=== PATIENT | male | born 1955 | race Caucasian/White ===

== ENCOUNTER 2020-12-27 12:27 | Inpatient (IN) | payer MEDICARE, OTHER ==
[~2020-12-27] VITALS: Ht 170.2 cm; Wt 144.8 kg
[2020-12-27 12:50] LABS: BASOPHILS ABSOLUTE AUTO 0.02 K/mm3 (0.00-0.23); BASOPHILS PERCENT AUTO 0 % (0-2); EOSINOPHILS ABSOLUTE AUTO 0.11 K/mm3 (0.00-0.68); EOSINOPHILS PERCENT AUTO 1 % (0-6); Hematocrit 29.7 % (37.0-53.0); Hemoglobin 8.6 g/dL (13.5-17.5); IMMATURE GRAN ABSOLUTE AUTO 0.06 K/mm3 (0.00-0.10); IMMATURE GRAN PERCENT AUTO 1 % (0-1); LYMPHOCYTES ABSOLUTE AUTO 1.18 K/mm3 (0.84-5.20); LYMPHOCYTES PERCENT AUTO 15 % (21-46); MONOCYTES ABSOLUTE AUTO 0.82 K/mm3 (0.16-1.47); MONOCYTES PERCENT AUTO 10 % (4-13); Mean Corpuscular HGB 28.5 pg (26.0-34.0); Mean Corpuscular Volume 98 fL (80-100); Mean Platelet Volume 12.1 fL (9.1-12.4); NEUTROPHILS ABSOLUTE AUTO 5.94 K/mm3 (1.96-9.15); NEUTROPHILS PERCENT AUTO 73 % (41-73); NRBC ABSOLUTE 0.02 K/mm3 (0.00-0.02); NRBC Auto 0.2 /100 WBC (0.0-0.2); Platelet Count 106 K/mm3 (150-400); RDW Coefficient Variation 15.4 % (11.7-14.2); RDW Standard Deviation 53.6 fL (35.1-46.3); Red Blood Cell Count 3.02 M/mm3 (4.30-5.90); White Blood Cell Count 8.13 K/mm3 (4.00-11.30)
[2020-12-27 13:04] LABS: International Normalized Ratio 1.22; Prothrombin Time Results 12.9 Sec (9.7-11.5)
[2020-12-27 13:10] LABS: Alanine Aminotransfer (ALT/SGP 66 U/L (12-78); Albumin, Blood 2.3 g/dL (3.4-5.0); Albumin/Globulin Ratio 0.7 (0.8-1.8); Alk Phos 97 U/L (50-136); Anion Gap 0 mmol/L (6-16); Aspartate Aminotrans (AST/SGOT 29 U/L (12-37); Bilirubin, Total 0.4 mg/dL (0.1-1.0); Blood Urea Nitrogen 41 mg/dL (8-24); Bun/Creatinine Ratio 36.9 (12.0-20.0); CO2, Blood 35 mmol/L (21-32); Calcium, Blood 8.2 mg/dL (8.5-10.1); Chloride, Blood 113 mmol/L (98-108); Creatinine, Blood 1.11 mg/dL (0.60-1.20); Globulin, Blood 3.5 g/dL (2.2-4.0); Glomerular Filtration Rate >60 (60-); Glucose, Blood 198 mg/dL (70-99); Potassium, Blood 4.3 mmol/L (3.5-5.5); Sodium, Blood 148 mmol/L (136-145); Total Protein, Blood 5.8 g/dL (6.4-8.2); Troponin I 0.018 ng/mL (0.000-0.040)
[2020-12-27] MEDS ORDERED: METOPROLOL TART25 MG PO (14:39)
[2020-12-27] MEDS ORDERED: FUROSEMIDE20 MG PO (14:39)
[2020-12-27] MEDS ORDERED: ATOR40TA PO (14:40)
[2020-12-27] MEDS ORDERED: GLYB2.5 PO (14:40)
[2020-12-27] MEDS ORDERED: LISI5 PO (14:40)
[2020-12-27] MEDS ORDERED: ELIQUIS5 M3 PO (14:40)
[2020-12-27] MEDS ORDERED: METFORMIN HCL1000 M6 PO (14:41)
[2020-12-27] MEDS ORDERED: OXYB5 PO (14:41)
[2020-12-27] MEDS ORDERED: Aspirin EC81 MG PO (15:18)
[2020-12-27] MEDS ORDERED: HUMALOG KW100 UNIT/1 SC (15:19)
[2020-12-27 16:16] LABS: Base Excess Venous 7.8 mmol/L; Bicarbonate Venous 29.9 mmol/L (24.0-30.0); PCO2 Venous 77.8 mmHg (38-42); PO2 Venous 42.6 mmHg (38-42); pH Blood Venous 7.26 (7.34-7.37)
[2020-12-27 19:26] LABS: Hemoglobin 7.2 g/dL (13.5-17.5); Mean Corpuscular HGB 28.1 pg (26.0-34.0); Mean Corpuscular HGB Conc 28.8 g/dL (31.5-36.5); Mean Corpuscular Volume 98 fL (80-100); Mean Platelet Volume 11.9 fL (9.1-12.4); NRBC ABSOLUTE 0.03 K/mm3 (0.00-0.02); NRBC Auto 0.4 /100 WBC (0.0-0.2); Platelet Count 104 K/mm3 (150-400); RDW Coefficient Variation 15.4 % (11.7-14.2); RDW Standard Deviation 53.2 fL (35.1-46.3); Red Blood Cell Count 2.56 M/mm3 (4.30-5.90)
[2020-12-27 20:37] LABS: Percent Saturation 21.1 % (20.0-50.0)
[2020-12-27 22:16] LABS: Hematocrit 25.1 % (37.0-53.0); Hemoglobin 7.3 g/dL (13.5-17.5)
[2020-12-27 22:37] LABS: PCO2 Arterial 56.2 mmHg (35-45); PO2 Arterial 54.1 mmHg (80-100); pH Blood Arterial 7.41 (7.35-7.45)
--- NOTE | 2020-12-27 23:00 | NUR ---
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 PT TRANSFERED TO ICU 15. MOANS TO STERNAL RUB. PT ON BIPAP 20/8 FIO2 21%. PT MED WITH 1/2 AMP D50 THAN WAKES UP AND IS ABLE TO ANSWER QUESTIONS APPROP. LOPRESSOR AND LIPITOR HELD AT 2254 DUE TO DECREASED RESPONSIVNESS. HOSPITALIST MILAGRO TRIPP AT BEDSIDE.
--- NOTE | 2020-12-27 23:29 | NUR ---
PATIENT ARRIVED FROM ED VIA STRETCHER AND WAS SLID TO THE BED @2024. WHEN PATIENT ARRIVED TO THE UNIT HE WAS ALERT AND ORIENTED TO SELF, PLACE, AND FOLLOWING DIRECTIONS. PATIENT HAD GARBLED SPEECH AND WAS HARD TO UNDERSTAND BUT ANSWERED APPROPRIATELY. SLIGHT LEFT SIDE FACIAL DROOP, HX BELLS PALSY IN THE NOTES. PATIENT WAS ABLE TO HELP US WITH TURNING. 2149- WHILE ASSESSING PATIENT FURTHER HIS BP WAS 86/52. PATIENT STILL SOMEWHAT RESPONSIVE AND MOANING. UNABLE TO FOLLOW DIRECTION. 2229- PATIENT UNRESPONSIVE TO PAINFUL STIMULI. BLOOD PRESSURE 75/36. PATIENT HAS HX OF DIABETES, CHECKED BLOOD GLUCOSE WHICH WAS 86. HGB 7.3. CALLED HOSPITALIST TO ADDRESS THESE PROBLEMS AND A RAPID RESPONSE WAS INITIATED. 2239- PATIENT TRANSFERRED TO ICU. CALLED TO GET CONSENT FOR BLOOD TRANSFUSION WITH RON DE PAZ. NOTIFIED OF THE PATIENTS CONDITION AND TRANSFER TO ICU.
[2020-12-27 23:38] LABS: Hematocrit 24.4 % (37.0-53.0); Hemoglobin 7.1 g/dL (13.5-17.5)
--- NOTE | 2020-12-27 23:45 | NUR ---
HYPOTENSION SBP DOWN TO THE 90'S. BLOOD GLUCOSE 123. BOTH REPORTED TO HOSPITALIST MILAGRO TRIPP. RECEIVED ORDER FOR NS 500 ML BOLUS OVER ONE HOUR, STARTED. PT SITTING UP IN BED EATING PUDDING AND TALKING WITH STAFF.
--- NOTE | 2020-12-28 | NUR ---
O2 PT WITH O2 SPO2 DOWN TO 80-85% AT TIMES THAN BACK UP TO 95%. PLACED ON O2 AT 2 LITERS VIA NC.
[2020-12-28 01:54] LABS: U Amphetamine Screen Not Detected; U Barbituate Screen Not Detected; U Benzodiazapine Screen Not Detected; U Buprenorphine Screen Not Detected; U Cannabinoids Screen Not Detected; U Cocaine Screen Not Detected; U Methadone Screen Not Detected; U Methamphetamine Screen Not Detected; U Opiates Screen Not Detected; U Oxycodone Screen Not Detected; U Phencyclidine Screen Not Detected; U Propoxyphene Screen Not Detected
--- NOTE | 2020-12-28 02:08 | NUR ---
CALL TO MD CALL TO DR RAMIREZ REGARDING AFIB WITH RVR AND PT NOT RECEIVING PO DOSE OF LOPRESSOR DUE TO DECREASED LOC AT THE TIME. RECEIVED ORDERS FOR IV LOPRESSOR NOW AND ONE TIME ORDER FOR PO LOPRESSOR NOW. BOTH GIVEN AND PT TOOK PO MEDS IN PUDDING WITHOUT DIFFICULTY. O2 INCREASED TO 4 LITER DUE TO SPO2 88-90%.
[2020-12-28 03:45] LABS: Hemoglobin 6.6 g/dL (13.5-17.5); Mean Corpuscular HGB 28.2 pg (26.0-34.0); Mean Corpuscular HGB Conc 28.7 g/dL (31.5-36.5); Mean Corpuscular Volume 98 fL (80-100); Mean Platelet Volume 12.4 fL (9.1-12.4); NRBC ABSOLUTE 0.02 K/mm3 (0.00-0.02); NRBC Auto 0.2 /100 WBC (0.0-0.2); Platelet Count 101 K/mm3 (150-400); RDW Coefficient Variation 15.5 % (11.7-14.2); RDW Standard Deviation 53.5 fL (35.1-46.3); Red Blood Cell Count 2.34 M/mm3 (4.30-5.90); White Blood Cell Count 8.31 K/mm3 (4.00-11.30)
--- NOTE | 2020-12-28 06:46 | NUR ---
SHIFT SUMMARY PT SLEEPING. UNIT PRBC INFUSING. VSS. IMPROVED MENTATION. PT CALLING FOR ASSIST AND ASSISTING WITH TURNING AND MOVING IN BED. PT PLACED ON O2 DURING THE NIGHT FOR SLEEP APNEA. SPO2 UP TO 95-100%. REPORT TO ON COMING NURSE.
--- NOTE | 2020-12-28 08:07 | NUR ---
DR. RODRIGUEZ UPDATED ON PATIENT STATUS. INFORMED THAT PATIENT SNORING AND HAVING PERIODS OF APNEA WHILE SLEEPING PER SAP PORTAL DEVELOPER RN. PATIENT HAS BEEN ON 4 L NC. ORDERS RECEIVED.
--- NOTE | 2020-12-28 08:10 | NUR ---
INITIAL ASSESSMENT PATIENT LETHARGIC THIS AM BUT WAKES EASILY TO VERBAL STIMULI. PATIENT ALERT AND ORIENTED X 4, AFEBRILE. PATIENT APPEARS SLIGHTLY WITHDRAWN, FLAT AFFECT. L FACIAL DROOP NOTED. SPEECH GARBLED AND DIFFICULT TO UNDERSTAND. 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 PATIENT WEAK BUT ABLE TO MOVE ALL EXTREMITIES. PATIENT SATTING 90% AND GREATER ON 4 L NC. PATIENT RA AT HOME. NIGHT RN REPORTED APNEIC PERIODS AND SNORING WHILE SLEEPING. LUNGS CLEAR IN UPPER LOBES, DIM IN R LOWER LOBE, CRACKLES NOTED IN L LOWER LOBE. PATIENT IN A. FIB, HR 90S TO LOW 100S. SBP LOW 100S TO 120S. PITTING EDEMA OF EXTREMITIES NOTED. ABDOMEN SOFT, MODERATELY DISTENDED, WITH NORMOACTIVE BS NOTED. ATTENDS IN PLACE FOR OCCASIONAL INCONTINENCE. SCHEDULED PO LASIX BEING GIVEN. PATIENT USING URINAL WITH ASSISTANCE. SKIN PALE AND COOL. SCATTERED BRUISES AND SCABS NOTED. ULCER TO COCCYX. SKIN TEAR TO L LEG. BLOOD INFUSING. BED LOW, CALL LIGHT IN REACH. WILL CONTINUE TO MONITOR FREQUENTLY THROUGHOUT SHIFT.
[2020-12-28] MEDS ORDERED: MULVITA PO (10:50)
[2020-12-28] MEDS ORDERED: LOPE2C PO (10:51)
[2020-12-28] MEDS ORDERED: ALUM-MAG HYDROX30 ML PO (10:51)
[2020-12-28] MEDS ORDERED: DULCOLAX400 MG/5 M PO (10:52)
[2020-12-28] MEDS ORDERED: Acetaminophen325 M1 PO (10:53)
[2020-12-28] MEDS ORDERED: Adult Glycerin1 EACH PR (10:53)
[2020-12-28] MEDS ORDERED: Fleet Enema132 ML PR (10:53)
--- NOTE | 2020-12-28 12:10 | NUR ---
PATIENT AFEBRILE. HR 90S TO LOW 100S. SBP 1-TEENS TO 130S. NO COMPLAINTS OF PAIN. NO OTHER ACUTE CHANGES TO NOTE ON AT THIS TIME. WILL CONTINUE TO MONITOR.
--- NOTE | 2020-12-28 12:15 | NUR ---
PATIENT TAKEN TO ABDOMINAL CT BY MUSIC WORKER.
--- NOTE | 2020-12-28 12:23 | NUR ---
DR. CISNEROS INFORMED THAT PATIENT HAS HAD 2 HARD, BLACK BMS TODAY THUS FAR. ORDERS OBTAINED.
--- NOTE | 2020-12-28 13:00 | NUR ---
DR. RODRIGUEZ INFORMED OF H AND H. ORDER RECEIVED.
[2020-12-28 13:37] LABS: Hematocrit 25.1 % (37.0-53.0); Hemoglobin 7.5 g/dL (13.5-17.5)
--- NOTE | 2020-12-28 18:42 | NUR ---
SHIFT SUMMARY PATIENT REMAINED ALERT AND ORIENTED X 4, AFEBRILE. PATIENT LETHARGIC AT TIMES AND DID NAP ON AND OFF THROUGHOUT SHIFT. PATIENT WITHDRAWN AND FLAT. PATIENT HAS REMAINED WITH L FACIAL DROOP AND GARBLED SPEECH. PATIENT HAD NO COMPLAINTS OF PAIN THIS SHIFT. PATIENT REMAINED SATTING 90% AND GREATER ON 1 TO 4 L NC. PATIENT REMAINED IN A. FIB, HR 90S TO LOW 100S. SBP LOW 100S TO 130S. PATIENT REMAINED WITH PITTING EDEMA. PATIENT HAD TWO, HARD, BLACK STOOLS THIS SHIFT. GI SAW PATIENT THIS SHIFT. NO SCOPE PLANNED AT THIS TIME. PATIENT REMAINED INCONTINENT OF URINE. ATTENDS ON, CLEAN AND DRY AT THIS TIME. NO CHANGE TO SKIN. PATIENT REPOSITIONED THROUGHOUT SHIFT. OT AND PT WORKED WITH PATIENT. PATIENT 2 PERSON ASSIST TO BSC OR CHAIR WITH FWW. IVS SALINE LOCKED. PATIENT RECEIVED 1 UNITS PRBCS THIS SHIFT. ABD CT PERFORMED. ACHS BLOOD SUGARS- SUGARS 118 AND 117 THIS SHIFT. ANOTHER H AND H SCHEDULED FOR 1999. PATIENT APPEARS CONTENT AT THIS TIME. BED LOW, CALL LIGHT IN REACH. WILL BE GIVING REPORT TO ONCOMING CS ASSOCIATE NURSE SHORTLY.
[2020-12-28 20:18] LABS: Hematocrit 26.8 % (37.0-53.0); Hemoglobin 8.2 g/dL (13.5-17.5)
--- NOTE | 2020-12-29 02:08 | NUR ---
ASSUMPTION OF CARE ASSUMED CARE OF PT AT START OF SHIFT. VITALS STABLE, BP 100'S SYSTOLIC. HR 110'S. O2 SATS >90% ON 1LPM NC. PT WAS SLEEPING, SLIGHTLY DIFFICULT TO WAKE. ALERT AND ORIENTED AND ABLE TO ANSWER QUESTIONS APPROPRIATELY, SPEECH DIFFICULT TO UNDERSTAND. L SIDE FACIAL DROOP, HX BELLS PALSY. ABLE TO MOVE ALL EXTREMITIES.
[2020-12-29 03:59] LABS: Hematocrit 24.6 % (37.0-53.0); Hemoglobin 7.3 g/dL (13.5-17.5)
--- NOTE | 2020-12-29 04:45 | NUR ---
SHIFT SUMMARY PT WAS ALERT AND ORIENTD T/O THE SHIFT WITH MILD CONFUSION WHEN WAKING UP. PT WAS DIFFICULT TO WAKE UP AT TIMES BUT WOULD BE ALERT AND ORIENTED SHORTLY AFTER WAKING. PT SHOWED SOME SLEEP APNEA, O2 SATS WOULD FALL INTO THE 80'S AND PT WOULD HAVE BRIEF PAUSES IN BREATHING. VITALS WERE STABLE WITH BP LOW OF 104/56 AND A HIGH OF 149/94. HR 60-80'S IN AFIB. 02 SATS >90% ON 1 LPM VIA NC WHEN AWAKE. PT HAD A LARGE BM THAT WAS BLACK AND TARRY. HGB DOWN TO 7.3 THIS AM FROM 8.2 LAST NIGHT. PT OTHERWISE HAD A QUIET UNEVENTFUL NIGHT.
--- NOTE | 2020-12-29 07:45 | NUR ---
UPDATED DR. RODRIGUEZ ON PATIENT STATUS. INFORMED THAT H AND H 8.2 AND 24.6 THIS AM. INFORMED THAT NIGHT RN REPORTED 1 XL, LOOSE, TARRY, BLACK BOWEL MOVEMENT OVERNIGHT. INFORMED THAT DR. CHAVES'S NOTE STATED THAT ELIQUIS CAN BE RESTARTED AND FIBER ADDED TO DIET. ORDERS RECEIVED.
--- NOTE | 2020-12-29 08:30 | NUR ---
INITIAL ASSESSMENT PATIENT SLEEPING AND LETHARGIC UPON ENTERING ROOM. PATIENT WOKE EASILY TO VERBAL STIMULI. PATIENT ALERT AND ORIENTED X 4, AFEBRILE. PATIENT HAS NO COMPLAINTS OF PAIN. PATIENT WITHDRAWN AND WITH FLAT AFFECT. PATIENT COOOPERATIVE. L FACIAL DROOP NOTED. DIAGNOSED 2 MONTHS AGO WITH MCCRAY'S PALSY. SPEECH GARBLED AND DIFFICULT TO UNDERSTAND AT TIMES. PATIENT WEAK; 2 PERSON ASSIST TO BSC OR CHAIR WITH FWW. PATIENT SATTING 90% AND GREATER ON RA WHILE AWAKE. PATIENT HAS BEEN NEEDING 4 L NC WHILE SLEEPING FOR PERIODS OF APNEA. PATIENT HAS OCCASIONAL NONPRODUCTIVE COUGH. LUNGS CLEAR IN UPPER LOBES. CRACKLES NOTED IN LOWER LOBES. PATIENT IN A. FIB, HR IN THE 80S. SBP IN THE LOW 100S. PITTING EDEMA TO BUES, BLES, THIGHS. SCDS IN PLACE. ATTENDS IN PLACE FOR INCONTINENCE OF URINE AND STOOL. PER BUSINESS INITIATIVES MANAGER RN REPORT, PATIENT HAD XL, LOOSE, TARRY, BLACK BM ON BUSINESS INITIATIVES MANAGER. PATIENT RECEIVING SCHEDULED PO LASIX. URINE YELLOW IN COLOR. PATIENT ON ADA DIET. SKIN TEAR NOTED TO L LEG. SCATTERED BRUISES NOTED. MEPILEX C/D/I TO ULCER ON COCCYX. IVS FLUSHED AND SALINE LOCKED. PATIENT HAS REMOVED AM AND ORAL CARE, WELL DAILY BED BATH. BED LOW, CALL LIGHT IN REACH. WILL CONTINUE TO MONITOR PATIENT FREQUENTLY THROUGHOUT SHIFT.
[2020-12-29 12:20] LABS: Hematocrit 26.9 % (37.0-53.0); Hemoglobin 7.9 g/dL (13.5-17.5)
--- NOTE | 2020-12-29 12:58 | NUR ---
SHIFT SUMMARY PATIENT HAS REMAINED ALERT AND ORIENTED, AFEBRILE. PATIENT GIVEN PRN FENTANYL OT FOR COMPLAINTS OF BOTTOM PAIN. PATIENT GIVEN AIR DONUT FOR BUM. PATIENT HAS REMAINED SATTING 90% AND GREATER ON RA WHILE AWAKE AND ON 4 L NC WHILE SLEEPING. PATIENT HAS REMAINED IN A. FIB. VSS. PATIENT HAD ONE VERY DARK BROWN BM THIS SHIFT. BM LARGE AND LOOSE. DR. CISNEROS CALLED TO COME LOOK AT. PATIENT REMAINS INCONTINENT AT TIMES. ATTENDS IN PLACE ARE CLEAN AND DRY. HEMOGLOBIN INCREASED TO 7.9 AT NOON. BLOOD SUGARS 133 AND 180 THIS SHIFT. NURSE CALLED , FIORELLA, AND UPDATED ON PATIENT AND TRANSFER PENDING TRANSFER TO MEDICAL FLOOR. STATES THAT IF PATIENT GETS DISCHARGED THAT SHE WILL NOT BE ABLE TO TAKE CARE OF HIM AT HOME. REPORT GIVEN TO ASSUMING MEDICAL FLOOR NURSE. INFORMED THAT MAINTENANCE MECHANIC HELPER WILL BE NEEDED. PATIENT WILL BE TRANSFERRING SHORTLY.
--- NOTE | 2020-12-29 13:15 | NUR ---
DR. IVEY SHOWN PATIENT'S BM. AGREES THAT IS VERY DARK BROWN. PATIENT SUCCESSFULLY TRANSFERRED TO MEDICAL FLOOR, ROOM 341. ALL BELONGINGS SENT WITH PATIENT.
--- NOTE | 2020-12-29 17:26 | NUR ---
SHIFT SUMMARY- PT IS A/O, PLESANT AND COOPERATIVE. HE TRANSFERED FROM ICU TODAY. HE IS EATING AND DRINKING WELL. HIS BED IS IN THE LOW POSITION AND CALL LIGHT IS WITIN REACH.
[2020-12-29 20:23] LABS: Hematocrit 24.2 % (37.0-53.0); Hemoglobin 7.3 g/dL (13.5-17.5)
--- NOTE | 2020-12-29 23:48 | NUR ---
PT FOUND PT WAS FOUND BY RT. PT WAS ON THE SIDE OF THE BED TOWARDS THE WALL. PT LOOKED IF HE WAS PRAYING. HE HAD A PILLOW UNDERNEATH HIS KNEES AND FACING THE BACK OF THE ROOM. PT STATES THAT HE WAS ATTEMPTING TO GET OUF OF BED TO USE THE BATHROOM. PT HAS ALREADY WET THE BED EVIDENCE OF YELLOW STAIN AND THE FLOOR WAS ALSO WET. PT WAS ALERT AND ORIENTED AT THE BGINNING OF THE SHIFT BUT UPON ASSESSMENT AT THIS TIME, PT DID NOT KNOW THAT HE CAME FROM THE ICU. PT STATES THAT HE WAS ABLE TO "ROLL" OUT OF BED THIS MORNING. PT UPSET BECAUSE HE WANTS TO LEAVE THIS AM BUT HE IS NOT STRONG ENOUGH. IT TOOK FOUR PEOPLE TO GET THE PT OFF THE FLOOR TO A CHAIR AND TWO NURSES TO GET HIM FROM THE CHAIR TO THE BED. PT STATES HE DID NOT HURT HIMSELF ANYWHERE. PT KNEES HAVE OLD SCABS ON THEM. BED ALARM IS NOW ON. CALL LIGHT IN REACH, PT IS NOW WATCHING TV.
[2020-12-30 04:29] LABS: Hematocrit 24.6 % (37.0-53.0); Hemoglobin 7.3 g/dL (13.5-17.5)
[2020-12-30 04:47] LABS: Bun/Creatinine Ratio 33.6 (12.0-20.0); Calcium, Blood 8.1 mg/dL (8.5-10.1); Creatinine, Blood 1.37 mg/dL (0.60-1.20); Potassium, Blood 3.7 mmol/L (3.5-5.5)
--- NOTE | 2020-12-30 04:59 | NUR ---
SHIFT SUMMARY ASSUMED CARE OF PT AT 1900. PT IS A/OX4 WITH TIMES OF CONFUSION. SEE PREVIOUS NOTS ABOUT PT GETTING OUT OF BED. HEART SOUNDS REGULAR, PT HAS EDEMA FROM HIS LEGS DOWN. LUNG SOUNDS DIMINISHED. PT WAS CONTINENT/INCONTIENT DURING THE NIGHT. PT BLACK STOOLS, FROM PREVIOUS NOTES DOCTORS ARE AWARE. PT DRESSING ON BUTTOCK AND L LEG CHANGED. PT WAS ABLE TO STAND WITH 1-2P SSIST WITH GAITBELT AND WALKER. CALL LIGHT IN REACH, BED IN LOWEST POSTION.
--- NOTE | 2020-12-30 06:15 | NUR ---
REFUSING CARE T/O THE NIGHT PT HAS BEEN RIPPING OFF HIS PULSE READER AND TAKING OFF HIS OXYGEN. PT SATURATIONS REMAIN FROM 88-90% ON OXYGEN, PT IS 92% AND ABOVE. AT 0600, PT REFUSES TO PUT HIS PULSE OX BACK ON STATING" I DON'T NEED IT, I'M GETTING ENOUGH OXYGEN". CALL LIGHT IN REACH, BED IN LOWEST POSTION.
--- NOTE | 2020-12-30 18:42 | NUR ---
SHIFT SUMMARY- PT IS ALERT. HE WANTED TO GO HOME THIS MORNING, BUT DR. RODRIGUEZ EXPLAINED THAT THAT WOULD NOT BE POSSIBLE TODAY. HE IS EATING AND DRINKING WELL. HE SLEPT FOR MOST OF THE DAY. HE DID CLIMB OUT OF BED AND GOT ON HIS KNEES AT BEDSIDE ON A PILLOW. HE REQUIRED ASSISTANCE TO GET BACK INTO BED. HE SAID THAT HE WAS TRYING TO PRAY. HIS BED IS IN THE LOW POSITION CALL LIGHT IS WITHIN REACH. BED ALARM IS ON.
--- NOTE | 2020-12-31 04:32 | NUR ---
SHIFT SUMMARY ASSUMED CARE OF PT AT 1900. PT IS A/OX2. PT HAS BEEN CONFUSED ALL NIGHT THINKING THAT IT IS DAY TIMES AND HE IS SUPOSED TO GO HOME. PT ATTEMPTED TO GET OUT OF BED ONCE SAYING "I NEED TO GET UP ITS TIME TO GET DRESSED AND GO HOME". HEART SOUNDS REGULAR, LUNG SOUNDS HAVE CRACKLES AT THE BASES. PT HAS APNIC BREATHING T/O THE NIGHT BUT REFUSED TO WEAR OXYGEN. PT WAS INCONTIENT T/O THE NIGHT. PT SCROTUM AND LEGS ARE STILL VERY SWOLLEN, 3+ PITTING EDEMA. CALL LIGHT IN REACH, BED IN LOWEST POSITON.
[2020-12-31 05:22] LABS: BASOPHILS ABSOLUTE AUTO 0.02 K/mm3 (0.00-0.23); BASOPHILS PERCENT AUTO 0 % (0-2); EOSINOPHILS ABSOLUTE AUTO 0.17 K/mm3 (0.00-0.68); EOSINOPHILS PERCENT AUTO 2 % (0-6); Hematocrit 28.3 % (37.0-53.0); Hemoglobin 8.2 g/dL (13.5-17.5); IMMATURE GRAN ABSOLUTE AUTO 0.12 K/mm3 (0.00-0.10); IMMATURE GRAN PERCENT AUTO 1 % (0-1); LYMPHOCYTES ABSOLUTE AUTO 1.36 K/mm3 (0.84-5.20); LYMPHOCYTES PERCENT AUTO 15 % (21-46); MONOCYTES ABSOLUTE AUTO 0.83 K/mm3 (0.16-1.47); MONOCYTES PERCENT AUTO 9 % (4-13); Mean Corpuscular HGB 29.1 pg (26.0-34.0); Mean Corpuscular Volume 100 fL (80-100); Mean Platelet Volume 12.3 fL (9.1-12.4); NEUTROPHILS ABSOLUTE AUTO 6.37 K/mm3 (1.96-9.15); NEUTROPHILS PERCENT AUTO 72 % (41-73); NRBC ABSOLUTE 0.21 K/mm3 (0.00-0.02); NRBC Auto 2.4 /100 WBC (0.0-0.2); Platelet Count 118 K/mm3 (150-400); RDW Coefficient Variation 18.8 % (11.7-14.2); RDW Standard Deviation 60.1 fL (35.1-46.3); Red Blood Cell Count 2.82 M/mm3 (4.30-5.90); White Blood Cell Count 8.87 K/mm3 (4.00-11.30)
[2020-12-31 08:25] LABS: Anion Gap 4 mmol/L (6-16); Blood Urea Nitrogen 41 mg/dL (8-24); Bun/Creatinine Ratio 33.1 (12.0-20.0); CO2, Blood 30 mmol/L (21-32); Calcium, Blood 8.2 mg/dL (8.5-10.1); Chloride, Blood 111 mmol/L (98-108); Creatinine, Blood 1.24 mg/dL (0.60-1.20); Glomerular Filtration Rate >60 (60-); Glucose, Blood 275 mg/dL (70-99); Potassium, Blood 4.1 mmol/L (3.5-5.5); Sodium, Blood 145 mmol/L (136-145)
--- NOTE | 2020-12-31 09:00 | NUR ---
pt bed alarm went off at shift change, he was found sitting on his knees on the floor, not cooperative with care, or following commands, was not able to stand up on his own or help, he was lifted with four people to a chair using a gait belt, lungs are clear dim in bases, resp even and unlabored, wont keep oximeter on, no cough noted, hrirr, no edema noted, ppp+2, cap refill <3sec, vs stable, afebrile, iv site is clear and patent, btx4, abd large soft nontender, incont of urine, skin has bruisings, pink coccyx, and wound to left liao, maew, weak, lissy, call light in reach. Dr. Wadsworth was in this am, planning for [facility] today.
--- NOTE | 2020-12-31 15:18 | NUR ---
PT HAS BEEN DISCHARGED TO [facility], REPORT CALLED TO LYRIC. IVX2 REMOVED INTACT, HAS ALL BELONGINGS. LEFT VIA WHEELCHAIR WITH TRANSPORT.
== END 2020-12-31 15:09 | DRG 811 ==
LOC: ER 12:27 → MEDS 15:37 → ICUW 15:37 → PCU 20:26 → ICUW 22:38 → MEDS 12-28 12:03 → ICUW 12-28 14:45 → MEDS 12-29 13:16
PROVIDERS: Emergency Medicine; Family Medicine; Nurse Practitioner Acute Care; ADMIT Hospitalist
PROC: 30233N1 Transfusion of Nonautologous Red Blood Cells into Peripheral Vein, Percutaneous Approach (ICD-10-PCS; principal; 2020-12-28)
PROC: 5A09357 Assistance with Respiratory Ventilation, Less than 24 Consecutive Hours, Continuous Positive Airway Pressure (ICD-10-PCS; 2020-12-28)
DX: D50.9 Iron deficiency anemia, unspecified (principal); G92 Toxic encephalopathy; J96.01 Acute respiratory failure with hypoxia; J96.02 Acute respiratory failure with hypercapnia; I50.22 Chronic systolic (congestive) heart failure; E87.3 Alkalosis; I48.20 Chronic atrial fibrillation, unspecified; E87.2 Acidosis; Z68.42 Body mass index [BMI] 45.0-49.9, adult; D63.8 Anemia in other chronic diseases classified elsewhere; I95.9 Hypotension, unspecified; Z86.16 Personal history of COVID-19; E66.01 Morbid (severe) obesity due to excess calories; R47.81 Slurred speech; G51.0 Bell's palsy; E78.5 Hyperlipidemia, unspecified; I11.0 Hypertensive heart disease with heart failure; E11.9 Type 2 diabetes mellitus without complications; Z79.01 Long term (current) use of anticoagulants; Z79.899 Other long term (current) drug therapy; Z79.82 Long term (current) use of aspirin; Z90.49 Acquired absence of other specified parts of digestive tract
CPT/HCPCS: 36415; 36430; 36600; 70450; 71045; 74177; 80048; 80053; 82272; 82728; 82803; 82947; 83540; 83550; 84484; 85014; 85018; 85025; 85027; 85610; 85730; 86850; 86900; 86901; 86923; 93005; 93010; 94660; 94762; 96374; 96375; 96376; 97116; 97162; 97166; 97530; 97535; 99285-25; A9270; A9270-GY; C9113; G0378; J2916; J7030; J7050; P9016; Q9967